=== PATIENT | female | born 1975 | race Caucasian/White ===

== ENCOUNTER 2020-04-21 03:27 | Outpatient (CLI) | payer BC, SELFPAY ==
[2020-04-21 09:25] LABS: HCT 44.1 % (36.0-46.0); HGB 15.3 g/dL (11.2-15.7); MCH 30.4 pg (27.0-33.0); MCHC 34.7 % (32.0-36.0); MCV 87.7 fL (80-95); MPV 11.7 fL (8.0-11.0); Platelet Count 191 10^3/uL (130-400); RBC 5.03 10^6/uL (3.93-5.22); RDW 11.9 % (11.7-14.6); WBC 4.95 10^3/uL (4.4-10.8)
[2020-04-21 10:19] LABS: ALT 31 U/L (14-59); AST 18 U/L (15-37); Alkaline Phosphatase 56 U/L (46-116); Anion Gap 9.7 mmol/L (3-11); BUN 13 mg/dL (7-18); Bilirubin, Total 0.4 mg/dL (0.2-1.0); CO2 26.3 mmol/L (21.0-32.0); CREATININE 1.05 mg/dL (0.55-1.02); Calcium 8.8 mg/dL (8.5-10.1); Calculated LDL 106 mg/dL (<100); Chloride 104 mmol/L (98-107); Cholesterol 212 mg/dL (<200); Estimated GFR 56.67 (mL/min/1.73m2); Glucose 90 mg/dL (74-106); HDL Cholesterol 64 mg/dL (40-60); Potassium 3.7 mmol/L (3.5-5.1); Sodium 140 mmol/L (136-145); Total Protein 7.2 g/dL (6.4-8.2); Triglyceride 211 mg/dL (<150)
[2020-04-23 04:44] LABS: Vitamin D 25 Total 20.2 ng/ml (30-100)
[2020-04-28 12:35] LABS: Helicobacter pylori Ag, Feces Negative (Negative)
== END 2020-04-21 03:47 ==
PROVIDERS: PCP Student in an Organized Health Care Education/Training Program; Visit Provider Student in an Organized Health Care Education/Training Program
DX: E55.9 Vitamin D deficiency, unspecified (principal); E86.0 Dehydration; R12 Heartburn; Z13.1 Encounter for screening for diabetes mellitus; Z13.220 Encounter for screening for lipoid disorders; N95.1 Menopausal and female climacteric states; R53.83 Other fatigue; K29.60 Other gastritis without bleeding
CPT/HCPCS: 36415; 80053; 80061; 82306; 85027; 87338

== ENCOUNTER 2020-05-25 02:50 | Outpatient (CLI) | payer BC, SELFPAY ==
--- NOTE | 2020-05-25 07:45 | DI.US_ITS ---
EXAM: US RENAL CLINICAL HISTORY: unexpected elevated Cr; r/o hydronephrosis,R79.89. TECHNIQUE: Ayers scale, color and spectral Doppler were used. COMPARISON: No exams were available for comparison FINDINGS: Renal size in cm: Right: 11.9. Left: 10.7. Echogenicity: Normal. Hydronephrosis: No. Cyst or mass: 0.8 x 0.5 x 0.6 cm simple cyst in the inferior pole of the right kidney. Nephrolithiasis: No. Other findings: None. Bladder:Normal. Ureteral jets: Right: Visualized and unremarkable. Left: Visualized and unremarkable. Prevoid vol:387 cc Postvoid vol:6 cc Renal color flow: Symmetric and within normal limits. IMPRESSION: No evidence of hydronephrosis. DATA REPOSITORY:
== END 2020-05-25 03:10 ==
PROVIDERS: PCP Student in an Organized Health Care Education/Training Program; Visit Provider Student in an Organized Health Care Education/Training Program
DX: R79.89 Other specified abnormal findings of blood chemistry (principal); N28.1 Cyst of kidney, acquired
CPT/HCPCS: 76770

== ENCOUNTER 2020-06-03 03:03 | Outpatient (CLI) | payer BC, SELFPAY ==
[2020-06-03 11:35] LABS: Anion Gap 10.1 mmol/L (3-11); BUN 9 mg/dL (7-18); CO2 27.9 mmol/L (21.0-32.0); Calcium 9.5 mg/dL (8.5-10.1); Chloride 103 mmol/L (98-107); Estimated GFR 59.96 (mL/min/1.73m2); Glucose 91 mg/dL (74-106); Potassium 4.1 mmol/L (3.5-5.1); Sodium 141 mmol/L (136-145); TSH (W/Ref FT4) 2.14 uIU/mL (0.36-3.74)
== END 2020-06-03 03:04 | disposition home or self-care (01) ==
LOC: LBO 03:03
PROVIDERS: PCP Student in an Organized Health Care Education/Training Program; Visit Provider Student in an Organized Health Care Education/Training Program
DX: R53.83 Other fatigue (principal); N95.1 Menopausal and female climacteric states; K58.9 Irritable bowel syndrome, unspecified; R79.89 Other specified abnormal findings of blood chemistry
CPT/HCPCS: 36415; 80048; 84443

== ENCOUNTER 2020-07-16 03:00 | Outpatient (CLI) | payer BC, SELFPAY ==
[2020-07-16 10:45] LABS: ALT 41 U/L (14-59); AST 19 U/L (15-37); Alkaline Phosphatase 46 U/L (46-116); Anion Gap 7.1 mmol/L (3-11); BUN 11 mg/dL (7-18); Bilirubin, Total 0.5 mg/dL (0.2-1.0); CO2 28.9 mmol/L (21.0-32.0); CREATININE 0.9 mg/dL (0.55-1.02); Calcium 9.1 mg/dL (8.5-10.1); Chloride 105 mmol/L (98-107); Glucose 90 mg/dL (74-106); Potassium 4.1 mmol/L (3.5-5.1); Sodium 141 mmol/L (136-145); Total Protein 7.2 g/dL (6.4-8.2)
[2020-07-16 11:08] LABS: Vitamin D 25 Total 59.4 ng/ml (30-100)
== END 2020-07-16 03:01 | disposition home or self-care (01) ==
LOC: LBO 03:00
PROVIDERS: PCP Student in an Organized Health Care Education/Training Program; Visit Provider Student in an Organized Health Care Education/Training Program
DX: E55.9 Vitamin D deficiency, unspecified (principal); K58.9 Irritable bowel syndrome, unspecified; E46 Unspecified protein-calorie malnutrition; K59.09 Other constipation; Z82.62 Family history of osteoporosis
CPT/HCPCS: 36415; 80053; 82306; 83735

== ENCOUNTER 2021-01-15 14:30 | Outpatient (CLI) | payer OTHER, SELFPAY ==
[2021-01-15 13:49] LABS: ALT 36 U/L (14-59); AST 20 U/L (15-37); Albumin 4.1 g/dL (3.4-5.0); Alkaline Phosphatase 44 U/L (46-116); Anion Gap 8.8 mmol/L (3-11); BUN 12 mg/dL (7-18); Bilirubin, Total 0.5 mg/dL (0.2-1.0); CO2 28.2 mmol/L (21.0-32.0); Calcium 9.2 mg/dL (8.5-10.1); Chloride 104 mmol/L (98-107); Estimated GFR 59.69 (mL/min/1.73m2); Glucose 123 mg/dL (74-106); Potassium 3.9 mmol/L (3.5-5.1); Sodium 141 mmol/L (136-145); Total Protein 7.5 g/dL (6.4-8.2)
== END 2021-01-15 14:31 | disposition home or self-care (01) ==
LOC: LBO 14:32
PROVIDERS: PCP Student in an Organized Health Care Education/Training Program; Visit Provider Student in an Organized Health Care Education/Training Program
DX: N17.9 Acute kidney failure, unspecified (principal); R94.4 Abnormal results of kidney function studies
CPT/HCPCS: 36415; 80053